=== PATIENT | male | born 1960 | race Caucasian/White ===

== ENCOUNTER 2022-12-07 15:25 | Outpatient (CLI) | payer BC, SELFPAY ==
--- NOTE | ~2022-12-07 | XR_ITS ---
EXAMINATION: XR ankle LT min 3V, XR foot LT min 3V DATE: 12/07/2022 16:00 INDICATION: Left foot and ankle pain post typical ball injury TECHNIQUE: 1. Anteroposterior, mortise, additional oblique and lateral view of the left ankle were obtained. 2. Dorsoplantar, two oblique and lateral views of the left foot were obtained. COMPARISON: None. FINDINGS: Alignment of the left foot and ankle is normal. No fracture or osteochondral lesion. Joint spaces are well maintained. No ankle joint effusion. The soft tissues are unremarkable. IMPRESSION: 1. Negative left foot and ankle radiographs. Reviewed, dictated and finalized at location A. IMPRESSION: 1. Negative left foot and ankle radiographs.
== END 2022-12-07 15:26 | disposition home or self-care (01) ==
LOC: CHSIMG 15:32
PROVIDERS: PCP Internal Medicine; Visit Provider Internal Medicine
DX: S99.912A Unspecified injury of left ankle, initial encounter (principal)
CPT/HCPCS: 73610; 73630

== ENCOUNTER 2023-10-26 06:14 | Emergency (ER) | payer MEDICARE, BC, SELFPAY ==
--- NOTE | ~2023-10-26 | CT_ITS ---
CT of the Abdomen and Pelvis: Indication: Abdominal pain Technique: 2.5 mm axial scans were obtained through the abdomen and pelvis following intravenous adm inistration of 100 cc of Omnipaque 350. Dose reduction technique was used on this scan by utilizing a utomated exposure control and iterative reconstruction technique. The dose-length product (DLP) was 2 76.22 mGy-cm. Findings: Scans through the lung bases demonstrate 4 mm right lower lobe pulmonary nodule (axial clay ge 15). There is a 1 cm hypodense hepatic lesion in the posterior right hepatic lobe, indeterminate (axial im age 30). The spleen, pancreas, gallbladder, adrenals and kidneys are within normal limits. No eviden ce of aortic aneurysm. No lymphadenopathy. No bowel obstruction or bowel wall thickening. There is no evidence to suggest acute appendicitis. Images through the pelvis were performed. Urinary bladder unremarkable. Prostate gland is enlarged, w ith an area of enhancement at the central to left paramedian region, measuring 3.0 x 1.4 cm (axial im age 89 for example). Impression: Enlarged prostate gland with 3.0 x 1.4 cm enhancing masslike area within the gland. Prostate carcinom a is a consideration. Appropriate workup for prostate carcinoma should be strongly considered. Cor relate with any relevant clinical history or prior workup. Indeterminate 1 cm hepatic lesion, as above. Follow-up nonemergent MR advised to further evaluate. 4 mm right lower lobe pulmonary nodule. According to Fleischner Society criteria, for a low-risk scott ent, no further follow-up required. For a high-risk patient, consider 12 month follow-up CT. Reviewed, dictated and finalized at [facility]. Impression: Enlarged prostate gland with 3.0 x 1.4 cm enhancing masslike area within the gl and. Prostate carcinoma is a consideration. Appropriate workup for prostate carcinoma should be strongly considered. Correlate with any relevant clinical h istory or prior workup. Indeterminate 1 cm hepatic lesion, as above. Follow-up nonemergent MR advised t o further evaluate. 4 mm right lower lobe pulmonary nodule. According to Fleischner Society criteri a, for a low-risk patient, no further follow-up required. For a high-risk patie nt, consider 12 month follow-up CT.
[2023-10-26 06:22] VITALS: BP 145/84; PULSE 64; RESP 15; O2SAT 100
[2023-10-26 06:52] LABS: Basophils Absolute Auto 0.1 K/mm3 (0.0-0.1); Basophils Percent Auto 1.1 % (0.2-1.2); Eosinophils Absolute Auto 0.2 K/mm3 (0-0.3); Eosinophils Percent Auto 1.9 % (0-4.4); Hematocrit 43.9 % (42.0-52.0); Hemoglobin 14.7 g/dL (14.0-18.0); Immature Granulocyte Absolute 0.03 K/mm3 (0.00-0.031); Immature Granulocyte Percent A 0.4 % (0-0.5); Lymphocytes Absolute Auto 3.08 K/mm3 (0.9-3.2); Lymphocytes Percent Auto 36.6 % (18.3-44.2); Mean Corpuscular HGB Conc 33.5 g/dl (32-36); Mean Corpuscular Hemoglobin 30.2 pg (26-34); Mean Corpuscular Volume 90.3 fl (80-100); Mean Platelet Volume 9.6 fl (7.4-10.4); Monocytes Absolute Auto 0.9 K/mm3 (0.1-0.6); Monocytes Percent Auto 10.1 % (2.6-8.5); Neutrophils Absolute Auto 4.2 K/mm3 (1.3-6.7); Neutrophils Percent Auto 49.9 % (45.5-73.1); Platelet Count Result 211 k/mm3 (150-375); Red Blood Count 4.86 M/mm3 (4.6-6.20); Red Cell Distribution Width 12.9 % (11.5-14.5); White Blood Count 8.4 K/mm3 (4.5-10.0)
[2023-10-26 06:58] LABS: Appearance Urine Clear (Clear); Bacteria Urine None Seen /hpf; Bilirubin Urine Negative (Negative); Blood Urine Negative (Negative); Color Urine Yellow (Yellow); Glucose Urine UA Negative (Negative); Ketones Urine Negative (Negative); Leukocyte Esterase Ur Trace LEU/UL (Negative); Nitrate Urine Negative (Negative); Non Pathogenic Casts 0-2; Protein Urine Negative (Negative); RBC Urine 0-2 /hpf (0-2); Specific Grav Ur 1.007 (1.001-1.035); Squamous Epithelial Cell Urine None Seen /hpf (Few); Urobilinogen Urine 0.2 mg/dL (<2.0); WBC Urine 0-5 /hpf (0-3)
[2023-10-26 07:01] LABS: Alanine Aminotransferase 21 U/L (6-50); Albumin Level 4.1 g/dL (3.5-5.1); Alkaline Phosphatase 61 U/L (38-126); Anion Gap 6 mmol/L (4-12); Aspartate Amino Transferase 28 U/L (17-59); Bilirubin,Total 0.7 mg/dL (0.2-1.3); Blood Urea Nitrogen 19 mg/dL (9-20); Calcium 8.9 mg/dL (8.4-10.2); Carbon Dioxide 28 mmol/L (22-30); Chloride 104 mmol/L (98-107); Estimated CRCL calculation 68 ml/min; Estimated Glomerular Filt Rate > 60; Glucose 92 mg/dL (65-110); Lipase 153 U/L (23-300); Potassium 3.7 mmol/L (3.4-5.0); Sodium 138 mmol/L (137-145)
[2023-10-26 07:02] LABS: Add Urine Microscopic? YES
--- NOTE | 2023-10-26 07:15 | ED.ABDPAIN ---
HPI - Abdominal Pain General Chief Complaint: Abdominal Pain Stated Complaint: pain in right side, under ribs Time Seen by Provider: 10/26/23 06:54 History of Present Illness HPI narrative: 63-year-old male presenting to the emergency department for evaluation for evaluation of right lower quadrant pain that started bothering him yesterday. Patient reports approximately 5:00 p.m. he started having the right lower quadrant pain. Patient did have an episode of nausea associated with this. Patient states the pain has been persistent since then. Patient denies any prior history of gallbladder disease denies any prior history of any abdominal surgeries. At time of evaluation patient declined any medications for pain or for nausea control. Related Data Allergies Allergy/AdvReac Type Severity Reaction Status Date / Time No Known Allergies Allergy Verified 10/26/23 06:28 Review of Systems Review of Systems: All systems reviewed & are unremarkable except as noted in HPI and below Exam Narrative: APPEARANCE: Well appearing, no pain, no distress, well-nourished. HEAD: normocephalic, atraumatic. EYES: PERRLA/EOMI, conjunctivae clear. NOSE: Normal no drainage NECK: Supple. No adenopathy, no masses. RESPIRATORY: Airway patent, respirations nonlabored. Clear to auscultation bilaterally, no rales, rhonchi, wheezing. CARDIOVASCULAR: Regular rate and rhythm without murmurs rubs or gallops. ABDOMINAL: right lower quadrant tenderness to palpation with rebound and guarding MUSCULOSKELETAL: Moves all extremities. Strength/ROM intact, No edema, No calf tenderness. NEURO: Alert. Cranial nerves II through XII intact. Grossly intact SKIN: Warm, dry. Normal Color Course Course Emergency Course: patient was updated results of his imaging and patient was encouraged to have close follow-up with his primary care physician. Vital Signs Vital signs: Vital Signs Pulse Rate 64 10/26/23 06:22 Respiratory Rate 15 10/26/23 06:22 Blood Pressure 145/84 H 10/26/23 06:22 Pulse Oximetry 100 10/26/23 06:22 Oxygen Delivery Room Air 10/26/23 06:22 Pulse Rate 59 L 10/26/23 09:20 Respiratory Rate 16 10/26/23 09:20 Blood Pressure 126/79 10/26/23 09:20 Pulse Oximetry 100 10/26/23 09:20 Oxygen Delivery Room Air 10/26/23 06:22 MDM - Abdominal Pain MDM Narrative Medical decision making narrative: 63-year-old male present to the ED for evaluation right lower quadrant pain. Patient is afebrile with no leukocytosis and a stable hemoglobin of 14.7. Patient has no acute abnormalities his CMP including a normal lipase. Urine was negative for hematuria hand for underlying infection. Patient does reproducible right lower quadrant tenderness to palpation. CT scan is being ordered to evaluate for colitis, diverticulitis, appendicitis. patient is afebrile with no leukocytosis and a stable hemoglobin of 14.7. Patient has no acute abnormalities on his CMP and has normal T bili AST ALT alk-phos and lipase. UA shows no evidence of infection and patient had no urinary retention. CT scan showed Enlarged prostate gland with 3.0 x 1.4 cm enhancing masslike area within the gland. Prostate carcinoma is a consideration. Appropriate workup for prostate carcinoma should be strongly considered. Correlate with any relevant clinical history or prior workup. Indeterminate 1 cm hepatic lesion, as above. Follow-up nonemergent MR advised to further evaluate. 4 mm right lower lobe pulmonary nodule. According to Fleischner Society criteria, for a low-risk patient, no further follow-up required. For a high-risk patient, consider 12 month follow-up CT. patient does report prior history of prostate issues but denies any current urinary retention. Patient was not retaining urine in the emergency department. Patient and family are updated on the results of the workup. Patient was encouraged to have close follow-up with his primary care ph
[2023-10-26 07:42] VITALS: BP 118/81; PULSE 55; RESP 12; O2SAT 100
[2023-10-26 09:20] VITALS: BP 126/79; PULSE 59; RESP 16; O2SAT 100
== END 2023-10-26 09:22 | disposition home or self-care (01) ==
PROVIDERS: Student in an Organized Health Care Education/Training Program; Emergency Provider Emergency Medicine; PCP Internal Medicine
DX: N42.89 Other specified disorders of prostate (principal); R10.31 Right lower quadrant pain; N40.0 Benign prostatic hyperplasia without lower urinary tract symptoms; R91.1 Solitary pulmonary nodule
CPT/HCPCS: 36415; 74177; 80053; 81001; 83690; 85025; 99284; Q9967

== ENCOUNTER 2023-10-29 09:59 | Outpatient (CLI) | payer MEDICARE, BC, SELFPAY ==
--- NOTE | ~2023-10-29 | XR_ITS ---
Lumbosacral Spine: AP and lateral views Clinical History: Pain Findings: The normal lordotic curve is maintained. The vertebral bodies and posterior elements are i ntact. The intervertebral disc spaces are preserved. There is mild to moderate facet arthropathy, es pecially the lower lumbar spine. The sacroiliac joints are normally outlined. Impression: Facet arthropathy, as above. Reviewed, dictated and finalized at location M. Impression: Facet arthropathy, as above.
[2023-10-29 10:21] LABS: Appearance Urine Clear (Clear); Bilirubin Urine Negative (Negative); Blood Urine Trace-intact (Negative); Color Urine Yellow (Yellow); Glucose Urine UA Negative (Negative); Ketones Urine Negative (Negative); Leukocyte Esterase Ur Trace (Negative); Nitrate Urine Negative (Negative); Protein Urine Negative (Negative); Specific Grav Ur 1.025 (1.010-1.020); Urobilinogen Urine 0.2 mg/dL (0.2-1.0)
[2023-10-29 10:34] LABS: Add Urine Microscopic? YES; RBC Urine 0-2 /hpf (0-2)
[2023-10-29 10:35] LABS: Cellular Casts Urine Present /lpf; Mucus Urine Rare /lpf; WBC Urine 0-3 /hpf (0-3)
[2023-10-29 11:04] LABS: Prostate Specific Antigen 50.8 ng/mL (< OR = 4.0)
[2023-10-29 11:09] LABS: CRP < 0.5 mg/dL (0.0-0.9)
== END 2023-10-29 10:00 | disposition home or self-care (01) ==
LOC: CHSLAB 10:02
PROVIDERS: PCP Internal Medicine; Visit Provider Internal Medicine
DX: N42.89 Other specified disorders of prostate (principal); M54.50 Low back pain, unspecified; Z12.5 Encounter for screening for malignant neoplasm of prostate; M12.88 Other specific arthropathies, not elsewhere classified, other specified site
CPT/HCPCS: 36415; 72100; 81001; 84153; 86140; 87086; G0103

== ENCOUNTER 2023-11-12 10:30 | Outpatient (CLI) | payer MEDICARE, BC, SELFPAY ==
[2023-11-12 10:46] LABS: Hematocrit 42.8 % (37.0-46.0); Hemoglobin 14.6 g/dL (12.4-15.3); Mean Corpuscular HGB Conc 34.1 g/dL (32-36); Mean Corpuscular Hemoglobin 30.7 pg (27.0-31.0); Mean Corpuscular Volume 89.9 fL (78.0-102.0); Mean Platelet Volume 9.2 fl (8.7-11.0); Platelet Count Result 194 K/mm3 (150-420); Red Blood Count 4.76 M/mm3 (4.70-6.10); Red Cell Distribution Width 12.6 % (11.6-14.4); White Blood Count 5.9 K/mm3 (4.8-10.8)
[2023-11-12 11:23] LABS: D Dimer 1.11 mg/L (0.19-0.50)
[2023-11-12 14:05] LABS: Alanine Aminotransferase 20 U/L (16-63); Albumin Level 3.3 g/dL (3.4-5.0); Alkaline Phosphatase 64 U/L (46-116); Anion Gap 9 mmol/L (4-12); Aspartate Amino Transferase 15 U/L (15-37); Bilirubin,Total 0.5 mg/dL (0.00-1.00); Blood Urea Nitrogen 15 mg/dL (7-18); Calcium 8.7 mg/dL (8.5-10.1); Carbon Dioxide 28 mmol/L (21-32); Chloride 103 mmol/L (98-108); Estimated Glomerular Filt Rate > 60; Glucose 101 mg/dL (70-99); Osmolality Calculated 290 mOsm/kg (285-295); Potassium 4.1 mmol/L (3.5-5.1); Prostate Specific Antigen 41.2 ng/mL (< OR = 4.0); Sodium 140 mmol/L (136-145); Total Protein 7.5 g/dL (6.4-8.2)
[2023-11-12 14:07] LABS: CRP < 0.5 mg/dL (0.0-0.9)
== END 2023-11-12 10:31 | disposition home or self-care (01) ==
PROVIDERS: PCP Internal Medicine; Visit Provider Internal Medicine
DX: R07.9 Chest pain, unspecified (principal); R97.20 Elevated prostate specific antigen [PSA]; R79.1 Abnormal coagulation profile
CPT/HCPCS: 36415; 80053; 84153; 85027; 85380; 86140

== ENCOUNTER 2023-11-12 13:37 | Outpatient (CLI) | payer MEDICARE, BC, SELFPAY ==
--- NOTE | ~2023-11-12 | CT_ITS ---
Clinical Indication: Chest pain CT Scan of the Chest with Contrast: Technique: Contiguous sections were acquired throughout the chest after intravenous administration of 100 cc of Omnipaque 350. Dose reduction technique was used on this scan by utilizing automated expos ure control and iterative reconstruction technique. The dose-length product (DLP) was 192.37 mGy-cm. Findings: There is no evidence of any significant mediastinal, hilar or axillary lymphadenopathy. There is no f illing defect in the pulmonary arterial tree to suggest pulmonary embolus. There is no evidence of ao rtic dissection or aneurysm. There is no evidence of pleural or pericardial effusion. 3 mm right lower lobe pulmonary nodule present. Additional 5 mm right lower lobe pulmonary nodule pre sent (axial image 122). 3 mm left basilar pulmonary nodule present (axial image 127). Several probabl e calcified granulomas are noted. Images through the upper abdomen reveal no abnormalities. Impression: No evidence of pulmonary embolus, aortic dissection, or aortic aneurysm. Subcentimeter pulmonary nodules, as above, likely benign. According to Fleischner Society criteria, f or a low-risk patient, no further follow-up required. For a high-risk patient, consider 12 month foll ow-up CT. Reviewed, dictated and finalized at location . Impression: No evidence of pulmonary embolus, aortic dissection, or aortic aneurysm. Subcentimeter pulmonary nodules, as above, likely benign. According to Fleischn er Society criteria, for a low-risk patient, no further follow-up required. For a high-risk patient, consider 12 month follow-up CT.
[2023-11-12 14:01] LABS: Estimated Glomerular Filt Rate > 60
== END 2023-11-12 13:38 | disposition home or self-care (01) ==
PROVIDERS: PCP Internal Medicine; Visit Provider Internal Medicine
DX: R07.9 Chest pain, unspecified (principal); R79.1 Abnormal coagulation profile; R91.8 Other nonspecific abnormal finding of lung field
CPT/HCPCS: 71275; Q9967

== ENCOUNTER 2024-09-04 10:53 | Outpatient (RCR) | payer MEDICARE, BC, SELFPAY ==
--- NOTE | 2024-09-04 12:13 | PTOPEVAL1 ---
Assessment and note entered by Jaden Vu Evaluation Information Assessment Status Evaluation ICD-10 Condition Codes (PT) Pain in low back M54.50 Onset 08/28/24 Subjective Information Pt. reports that he was playing Tennis last week and felt a pull in his back. He reports that pain worsened over the course of couple days. He notices no improvement since the initial injury. He did attempt to play tennis again, but was not comfortable. He reports that pain is worsened with bending forward and leaning side to side. He states that sleeping will be disrupted due to pain with turning. He states that he is currently not playing tennis. He states that he is not taking any medication, but has prescription for an anti-inflammatory. He reports that his goal is to reduce his pain and return to tennis. Reported Pain Level Pain Score 6: Self Report Assessment PT Clinical Summary Pt. is a 64 year old male who enters the clinic due to developed left sided low back pain. Pt. presents with consistencies with soft tissue strain involving the obliques and lumbar paraspinal. He presents with abdominal weakness, impaired flexibility, impaired trunk mobility and pain on this date. Continued skilled PT is indicated in order to improve these areas to allow the pt. to be able to complete all IADL's with less pain. Plan of Care Interventions Electrical Stimulation,Gait Training,Hot Pack/Cold Pack,Manual Therapy,Mechanical Traction,Neuro Re- education,Patient/Caregiver Education,Therapeutic Activities,Therapeutic Exercise PT Services Indicated Yes Treatment Frequency and 2x/week x 8 visits Duration These treatments will address the objective and functional deficits as defined above. The patient will be advanced safely and appropriately in order for the patient to progress towards his/her prior level of function. Additional exercises will be introduced and as well as a comprehensive home exercise program upon discharge, if needed, ?to ensure carryover of functional gains achieved in the clinic. This treatment plan has been reviewed and agreement upon by the patient.
--- NOTE | 2024-09-28 08:12 | OPREHPOC ---
Outpatient Therapy Plan of Care This is a Multidisciplinary Plan of Care that may contain components documented by all disciplines (PT, OT, and ST.) PT Problem 1 PT Problem #1 Knowledge Deficit PT Goal 1 Goal / Goal Update Pt. will be independent with a HEP focusing on trunk mobility. Target Visit 2 Progress Met PT Problem 2 PT Problem #2 Pain PT Goal 1 Goal / Goal Update Pt. will present with less than 25% limitation on the Oswestry indicating improved comfort. not met Pt. will be able to sleep through the night without pain disturbance. met Pt. will be able to sit in one position for duration of one hour without pain disturbance. met Target Visit 12 Progress Partially Met PT Problem 3 PT Problem #3 Impaired Strength PT Goal 1 Goal / Goal Update Pt. will present with 4+/5 oblique and upper abdominal strength. Target Visit 12 Progress Partially Met
--- NOTE | 2024-09-28 08:12 | PTOPREEVAL ---
Assessment and note entered by JT File, PT Evaluation Information Assessment Status Re-evaluation ICD-10 Condition Codes (PT) Pain in low back M54.50 Onset 08/28/24 Subjective Information patient reports he feels better overall. however , he reports he did get a massage yesterday, and did have some pain in the L lower back from this massage which was abnormal. he reports his HEP and exercises have continued to feel good, and he plans to play tennis today. he reports he has had no issues playing tennis the past few days. he reports he is going out of town for a tennis tournament. Reported Pain Level Pain Score 1: Self Report Assessment PT Clinical Summary mr. lerner presents to skilled PT for his 8th skilled PT visit. he presents today with reduced pain and improved functional activity performance with the return back to light to moderate tennis play. however, he still displays weakness in the obliques and lack of achievement of oswestry goal. continued skilled PT is indicated to improve his remaining objective/functional deficits and return to full prior level functional activities such as tennis play. Plan of Care Interventions Electrical Stimulation,Gait Training,Hot Pack/Cold Pack,Manual Therapy,Mechanical Traction,Neuro Re- education,Patient/Caregiver Education,Therapeutic Activities,Therapeutic Exercise PT Services Indicated Yes Treatment Frequency and continue skilled PT 2x weekly for 4 more visits Duration These treatments will address the objective and functional deficits as defined above. The patient will be advanced safely and appropriately in order for the patient to progress towards his/her prior level of function. Additional exercises will be introduced and as well as a comprehensive home exercise program upon discharge, if needed, ?to ensure carryover of functional gains achieved in the clinic. This treatment plan has been reviewed and agreement upon by the patient.
== END 2024-12-03 23:59 | disposition home or self-care (01) ==
LOC: CHSPT 10:53
PROVIDERS: PCP Internal Medicine; Visit Provider Internal Medicine
DX: S33.5XXA Sprain of ligaments of lumbar spine, initial encounter (principal)
CPT/HCPCS: 97014; 97110; 97140; 97161; 97530; G0283

== ENCOUNTER 2024-09-21 08:00 | Outpatient (CLI) | payer MEDICARE, SELFPAY ==
--- OUTSIDE RECORDS SUMMARY | 2024-09-21 08:08 | XMS_ITS | Clinical Summary ---
Author Organization [facility] Address [address] [place] [id number] Care Team Providers Care Cone Examiner Name Role Phone Bandar Crowley MD Primary Care Provider [phone] Allergies Active Allergy Reactions Criticality Noted Date Comments Hydromorphone Nausea and Vomiting 08/10/2024 Medications No known medications Active Problems No known active problems Encounters Date Type Department Care Team Description 08/21/2024 9:35 AM CDT Anest[facility] [address] [place] [address] Tee Euceda CRNA 08/21/2024 9:34 AM CDT - 08/21/2024 10:05 AM CDT Surgery [facility] [address] [place] [address] Hawa Grijalva MD extraction cataract RIGHT eye with lens implant 08/21/2024 8:28 AM CDT - 08/21/2024 10:23 AM CDT Hospital Encounter [facility] [address] [place] [address] Hawa Grijalva MD Discharge Disposition: Home or Self Care (Routine Discharge) 08/21/2024 Travel 08/10/2024 Travel from Last 3 Months Social History Tobacco Use Types Packs/Day Years Used Date Smoking Tobacco: Former Cigarettes Smokeless Tobacco: Never Tobacco Cessation:Counseling Given: Not Answered Alcohol Use Standard Drinks/Week Comments Not Asked 0 (1 standard drink = 0.6 oz pur e alcohol) rarely Sex and Gender Information Value Date Recorded Sex Assigned at Male 08/21/2024 8:22 AM CDT Legal Sex Male 7:54 AM CDT Gender Identity Not on file Sexual Orientation Not on file Last Filed Vital Signs Vital Sign Reading Time Taken Comments Blood Pressure 126/97 08/21/2024 9:51 AM CDT Pulse 53 08/21/2024 9:51 AM CDT Temperature 35.9 C (96.7 F) 08/21/2024 9:51 AM CDT Respiratory Rate 16 08/21/2024 9:51 AM CDT Oxygen Saturation 100% 08/21/2024 9:51 AM CDT Inhaled Oxygen Concentration - - Weight 72.1 kg (159 lb) 08/10/2024 1:10 PM CDT Height 185.4 cm (6' 1 ) 08/10/2024 1:10 PM CDT Body Mass Index 20.98 08/10/2024 1:10 PM CDT Plan of Treatment Health Maintenance Due Date Last Done Comments Colorectal Cancer Screening Colonoscopy (10 Years) 1960 Hepatitis C 01/08/1976 Pneumococcal Vaccine: 50+ Years (1 of 1 - PCV) 01/08/2008 Zoster Vaccines (1 of 2) 01/08/2008 AAA SCREENING 2023 Annual Medicare Wellness Visit 2023 COVID-19 Vaccine (3 - 2023-2 5 season) 2024 06/09/2021, 05/12/2021 DTaP, Tdap and Td Vaccines ( 2 - Td or Tdap) 11/13/2032 11/13/2022 RSV Immunization or 60+ Years (1 - 1-dose 75+ series) 2033 Meningococcal B Vaccine Aged Out No l onger eligible based on patient's age to complete this topic Meningococcal Vaccine Aged Out No janet gali eligible based on patient's age to complete this topic RSV Immunizations Under 20 Months Aged Out No longer eligible b ased on patient's age to complete this topic Medical Devices Implanted Type Area Flat Bed Knitter Device Identifier Shelf Expiration Date Model / Serial / Lot Tecnis 1-Piece Iol Implanted:Qty: 1 on 08/21/2024 by Hawa Grijalva MD at [facility] Right: Eye [employer] [id number] 07/03/2026 [id number] / [id number] / Procedures Procedure Name Priority Date/Time Associated Diagnosis Comments REMV CATARACT EXTRACAP,INSERT LENS 08/21/2024 9:30 AM CDT h25.9 Case Notes Can call for arrival time if patient does not answer - EB 08/10 from Last 3 Months Insurance [facility] MEDIC[facility] Care Teams Cone Examiner Relationship Specialty Start Date End Date Bandar Crowley MD [address] [place] [address] PCP - General INTERNAL MEDICINE 08/21/24
[2024-09-21 08:15] LABS: Hematocrit 45.6 % (37.0-46.0); Hemoglobin 14.8 g/dL (12.4-15.3); Mean Corpuscular HGB Conc 32.5 g/dL (32-36); Mean Corpuscular Hemoglobin 29.5 pg (27.0-31.0); Mean Platelet Volume 9.3 fl (8.7-11.0); Platelet Count Result 199 K/mm3 (150-420); Red Blood Count 5.01 M/mm3 (4.70-6.10); Red Cell Distribution Width 12.9 % (11.6-14.4); White Blood Count 5.9 K/mm3 (4.8-10.8)
[2024-09-21 08:16] LABS: Add Urine Microscopic? YES; Appearance Urine Clear (Clear); Bilirubin Urine Negative (Negative); Blood Urine Negative (Negative); Color Urine Yellow (Yellow); Glucose Urine UA Negative (Negative); Ketones Urine Negative (Negative); Leukocyte Esterase Ur Trace LEU/UL (Negative); Nitrate Urine Negative (Negative); Protein Urine Negative (Negative); Urobilinogen Urine 0.2 mg/dL (0.2-1.0)
[2024-09-21 08:21] LABS: Bacteria Urine Rare /hpf; Mucus Urine Few /lpf; RBC Urine None seen /hpf (0-2); WBC Urine 0-3 /hpf (0-3)
[2024-09-21 08:56] LABS: Alanine Aminotransferase 25 U/L (16-63); Albumin Level 3.4 g/dL (3.4-5.0); Alkaline Phosphatase 73 U/L (46-116); Anion Gap 4 mmol/L (4-12); Aspartate Amino Transferase 15 U/L (15-37); Bilirubin,Total 0.7 mg/dL (0.00-1.00); Blood Urea Nitrogen 15 mg/dL (7-18); Calcium 9.2 mg/dL (8.5-10.1); Carbon Dioxide 33 mmol/L (21-32); Chloride 103 mmol/L (98-108); Cholesterol 185 mg/dL (0-200); Estimated Glomerular Filt Rate > 60; Glucose 96 mg/dL (70-99); HDL Direct 52 mg/dL (40-60); LDL Cholesterol Calculated 120 mg/dL (<130); Osmolality Calculated 290 mOsm/kg (285-295); Potassium 3.9 mmol/L (3.5-5.1); Sodium 140 mmol/L (136-145); Thyroid Stimulating Hormone 5.01 uIU/mL (0.36-3.74); Total Protein 8.5 g/dL (6.4-8.2); Triglycerides 63 mg/dL (0-150)
== END 2024-09-21 08:01 | disposition home or self-care (01) ==
LOC: CHSLAB 08:03
PROVIDERS: PCP Internal Medicine; Visit Provider Internal Medicine
DX: R97.20 Elevated prostate specific antigen [PSA] (principal); E78.5 Hyperlipidemia, unspecified; R53.83 Other fatigue
CPT/HCPCS: 36415; 80053; 80061; 81001; 84153; 84443; 85027

== ENCOUNTER 2025-04-11 14:46 | Outpatient (CLI) | payer MEDICARE, SELFPAY ==
[2025-04-11 15:01] LABS: Hematocrit 41.2 % (37.0-46.0); Hemoglobin 13.8 g/dL (12.4-15.3); Mean Corpuscular HGB Conc 33.5 g/dL (32-36); Mean Corpuscular Hemoglobin 30.5 pg (27.0-31.0); Mean Corpuscular Volume 90.9 fL (78.0-102.0); Platelet Count Result 210 K/mm3 (150-420); Red Blood Count 4.53 M/mm3 (4.70-6.10); White Blood Count 5.9 K/mm3 (4.8-10.8)
[2025-04-11 15:23] LABS: Alanine Aminotransferase 22 U/L (6-50); Albumin Level 3.9 g/dL (3.5-5.1); Alkaline Phosphatase 83 U/L (38-126); Amylase 144 U/L (30-110); Anion Gap 8 mmol/L (4-12); Aspartate Amino Transferase 29 U/L (17-59); Blood Urea Nitrogen 21 mg/dL (9-20); CRP < 0.5 mg/dL (<1.0); Calcium 9.0 mg/dL (8.4-10.2); Carbon Dioxide 31 mmol/L (22-30); Chloride 106 mmol/L (98-107); Creatine Kinase 74 U/L (55-170); Estimated Glomerular Filt Rate 57; Glucose 88 mg/dL (65-110); Lipase 242 U/L (23-300); Osmolality Calculated 302 mOsm/kg (285-295); Potassium 3.8 mmol/L (3.4-5.0); Sodium 145 mmol/L (137-145); Total Protein 9.1 g/dL (6.3-8.2)
[2025-04-11 15:51] LABS: Prostate Specific Antigen 34.7 ng/mL (< OR = 4.0)
[2025-04-17 13:06] LABS: Bilirubin,Total 0.3 mg/dL (0.2-1.3)
== END 2025-04-11 14:47 | disposition home or self-care (01) ==
LOC: CHSLAB 14:48
PROVIDERS: PCP Internal Medicine; Visit Provider Internal Medicine
DX: R10.9 Unspecified abdominal pain (principal); R97.20 Elevated prostate specific antigen [PSA]
CPT/HCPCS: 36415; 80053; 82150; 82550; 83690; 84153; 85027; 86140

== ENCOUNTER 2025-04-13 07:22 | Outpatient (CLI) | payer MEDICARE, BC, SELFPAY ==
--- NOTE | ~2025-04-13 | CT_ITS ---
EXAMINATION: CT abdomen pelvis w con DATE: 04/13/2025 07:52 INDICATION: Abdominal pain and elevated lipase TECHNIQUE: Computed tomography (CT) of the abdomen and pelvis was performed with 100 mL Omnipaque-350 intravenous contrast. Automated exposure control and iterative reconstruction technique were employed. The dose-length product was 242.48 mGy-cm. COMPARISON: 10/26/2023 FINDINGS: Small region of patchy consolidation and groundglass opacity in the right middle lobe consistent with pneumonia. There is also a 5 mm right middle lobe new since CT dated is also likely infectious/inflammatory in etiology. Heart size is normal. No pericardial or pleural effusion. Focal hepatic steatosis at the ligamentum teres. 1.3 cm hypodense lesion in the right hepatic lobe with identical measurements on prior study. Gallbladder, spleen, bilateral adrenal glands and kidneys are normal. Pancreas is normal with homogeneous parenchymal enhancement and no surrounding peripancreatic inflammatory stranding to suggest acute pancreatitis. Bowels including the appendix are normal. No significant i nterval change in a 3.0 x 1.8 cm nodular region of enhancement at the cephalad central to left paracentral prostate. Bladder is normal. No free intraperitoneal gas or fluid. No pathologically enlarged abdominal or pelvic lymphadenopathy. Bones are unremarkable. IMPRESSION: 1. Small region of patchy consolidation and groundglass opacity in the right middle lobe most likely related to pneumonia. More discrete 5 mm right middle lobe nodule also likely infectious inflammatory in etiology but would recommend 3 month follow-up low-dose noncontrast chest CT. 2. No acute intra-abdominal/pelvic process with normal appearing pancreas. 3. No significant interval change in a nonspecific 3.0 x 1.8 cm nodular region of enhancement in the prostate for which differential would include prostate cancer. Correlate with PSA levels. 4. No interval change in a nonspecific 1.3 cm hypodense liver lesion which is most likely benign given the interval stability with differential including focal fat, focal nodular hyperplasia or hemangioma. Reviewed, dictated and finalized at location A. ANICAL MANUFACTURING ENGINEER IMPRESSION: 1. Small region of patchy consolidation and groundglass opacity in the right mi ddle lobe most likely related to pneumonia. More discrete 5 mm right middle lob e nodule also likely infectious inflammatory in etiology but would recommend 3 month follow-up low-dose noncontrast chest CT. 2. No acute intra-abdominal/pelvic process with normal appearing pancreas. 3. No significant interval change in a nonspecific 3.0 x 1.8 cm nodular region of enhancement in the prostate for which differential would include prostate ca ncer. Correlate with PSA levels. 4. No interval change in a nonspecific 1.3 cm hypodense liver lesion which is m ost likely benign given the interval stability with differential including foca l fat, focal nodular hyperplasia or hemangioma.
== END 2025-04-13 07:23 | disposition home or self-care (01) ==
LOC: CHSIMG 07:23
PROVIDERS: PCP Internal Medicine; Visit Provider Internal Medicine
DX: R10.9 Unspecified abdominal pain (principal); R74.8 Abnormal levels of other serum enzymes; R91.8 Other nonspecific abnormal finding of lung field; K76.9 Liver disease, unspecified; R93.89 Abnormal findings on diagnostic imaging of other specified body structures
CPT/HCPCS: 74177; Q9967

== ENCOUNTER 2025-04-18 07:13 | Outpatient (CLI) | payer MEDICARE, BC, SELFPAY ==
--- NOTE | ~2025-04-18 | CT_ITS ---
EXAMINATION:CT diagnostic chest wo con DATE: 04/18/2025 07:30 INDICATION: Lung nodule TECHNIQUE: Computed tomography (CT) of the chest was performed without intravenous contrast. The dose-length product (DLP) was 167.44 mGy-cm. COMPARISON: 11/12/2023 FINDINGS: 5 mm right lung base nodule image 123 series 4 is unchanged. Lateral segment right middle lobe focal area of atypical appearing consolidation in the anterior subpleural region has developed with mild bronchiectasis and/or air cysts formation. The area measures approximately 2.5 x 2.5 x 1.5 cm. Cavitation is less likely. No other nodules lesions or masses seen. Heart and great vessels stable and normal in size. No significant pericardial effusion or bulky lymphadenopathy. No acute process seen in the visualized upper abdomen bony thorax or extrathoracic soft tissues. IMPRESSION: 1. New small area of atypical consolidation in the right middle lobe possibly associated with small airways inflammatory process or atypical infection. Malignant process is much less likely but not excluded. Short interval follow- up chest CT in 3 months is recommended to confirm stability or resolution. 2. Stable benign appearance of subcentimeter right lung base nodules. Reviewed, dictated and finalized at location A. Y CHILDHOOD EDUCATION WORKER IMPRESSION: 1. New small area of atypical consolidation in the right middle lobe possibly a ssociated with small airways inflammatory process or atypical infection. Malign ant process is much less likely but not excluded. Short interval follow-up [facility] st CT in 3 months is recommended to confirm stability or resolution. 2. Stable benign appearance of subcentimeter right lung base nodules.
== END 2025-04-18 07:14 | disposition home or self-care (01) ==
PROVIDERS: PCP Internal Medicine; Visit Provider Physician Assistant
DX: R91.1 Solitary pulmonary nodule (principal); R91.8 Other nonspecific abnormal finding of lung field
CPT/HCPCS: 71250